=== PATIENT | female | born 1995 | race Hispanic/Latino ===

== ENCOUNTER 2018-03-12 21:38 | Emergency (ER) | payer SELFPAY ==
[2018-03-12] MEDS ORDERED: ONDANSETRON ODT 4 MG TAB ONE (22:52)
== END 2018-03-12 23:08 | disposition home or self-care (01) ==
LOC: EDH 21:38
DX: R53.1 Weakness (principal); R11.2 Nausea with vomiting, unspecified; R51 Headache; F41.9 Anxiety disorder, unspecified; F31.9 Bipolar disorder, unspecified; F20.9 Schizophrenia, unspecified; Z72.0 Tobacco use; Z90.49 Acquired absence of other specified parts of digestive tract
CPT/HCPCS: 99282